=== PATIENT | male | born 1985 | race Caucasian/White ===

== ENCOUNTER 2021-12-20 06:59 | Emergency (ER) | payer BC, OTHER ==
[~2021-12-20] VITALS: Ht 170.2 cm; Wt 74.8 kg
[2021-12-20 09:11] VITALS: BP 135/78
[2021-12-20] MEDS ORDERED: TETRACAINE HCL 0.5% OPTH(EYE) SOLN 4ML LEFTEYE ONE ×2 (09:15)
[2021-12-20] MEDS ORDERED: FLUORESCEIN SOD OPTH TEST STRIP LEFTEYE ONE (09:30)
[2021-12-20] MEDS ORDERED: POLYSOL15 OP (09:37)
== END 2021-12-20 09:45 | disposition home or self-care (01) ==
LOC: ER 06:59
DX: T15.92XA Foreign body on external eye, part unspecified, left eye, initial encounter (principal); X58.XXXA Exposure to other specified factors, initial encounter; Y93.89 Activity, other specified; Y92.89 Other specified places as the place of occurrence of the external cause; Y99.8 Other external cause status